=== PATIENT | male | born 1980 | race Caucasian/White ===

== ENCOUNTER 2016-08-02 19:29 | Emergency (ER) | payer SELFPAY ==
[~2016-08-02] VITALS: Ht 172.7 cm; Wt 75.5 kg
[~2016-08-02 19:29] MED LIST: Z.0.NO CURRENT MEDS
[2016-08-02 19:37] VITALS: RESP 20; TEMP 98.3; O2SAT 100
[2016-08-02] MEDS ORDERED: ACETAMINOPHEN/HYDROcodone 325 MG/7.5 MG TAB PO ONE (20:00)
--- NOTE | 2016-08-02 20:11 | PD ---
HPI Chief Complaint: Injury Time Seen by Provider: 20:04 Travel History International Travel<30 days: No Contact w/Intl Traveler<30days: No Traveled to known affect area: No History of Present Illness HPI 35-year-old male with congenital solitary kidney presents to the ED for evaluation of 10/10 right-sided ankle pain. Onset 4 days ago after falling down half a flight of stairs. Patient states that the ankle turned under him but he is unable to discern whether an inversion or eversion occurred. He endorses pain on the lateral aspect of the midfoot, described as burning, searing, occasionally shooting up the leg. Worsened by attempted ambulation. He has been ambulatory since the accident, states that he has been bearing weight on the medial side of his leg and the heel. He treated at home with ibuprofen and ice with no improvement of symptoms. Denies previous injury to the area, chronic health problems, takes no daily medications. Endorses allergy to Keflex. PFSH Past Medical History Depression: Yes Medical other: Yes (Has 1 kidney) Psychiatric: Yes (DEPRESSION) Tetanus Vaccination: < 5 Years Influenza Vaccination: No Past Surgical History Surgical History: No Previous Surgery Social History Alcohol Use: Yes Tobacco Use: Yes (1 PPD) Substance Use: Yes (Denies today) Allergies-Medications (Allergen,Severity, Reaction): Coded Allergies: Keflex (Verified Allergy, Unknown, 08/02/16) Patient states he thinks he was told not to take this because he has one kidney. Reported Meds & Prescriptions Reported Meds & Active Scripts Active Ibuprofen 800 Mg Tab 800 Mg PO Q8H Review of Systems Except as stated in HPI: all other systems reviewed are Neg Physical Exam Narrative GENERAL: Well-nourished, well-developed white male in no acute distress. SKIN: Warm and dry. HEAD: Normocephalic. EYES: No scleral icterus. No injection or drainage. NECK: Supple, trachea midline. No JVD or lymphadenopathy. CARDIOVASCULAR: Regular rate and rhythm without murmurs, gallops, or rubs. RESPIRATORY: Breath sounds equal bilaterally. No accessory muscle use. GASTROINTESTINAL: Abdomen soft, non-tender, nondistended. MUSCULOSKELETAL: No cyanosis, or edema. FOCUSED RIGHT LOWER EXTREMITY EXAM: 2+ DP pulse. Mild erythema of the lateral aspect of the midfoot. Squeeze test negative. Bimalleolar tenderness. Tender to palpation of the base of the fifth. No navicular tenderness. Patient is able to wiggle the toes and weakly flex and extend the ankle. Sensation intact to light touch distally. Cap refill less than 2 seconds. BACK: No obvious deformity. No CVA tenderness. Data Data Last Documented VS Vital Signs Date Time Temp Pulse Resp B/P Pulse Ox O2 Delivery O2 Flow Rate FiO2 08/02/16 19:37 98.3 20 100 Orders Acetamin-Hydrocod 325-7.5 Mg ([place] 7.5 (08/02/16 20:00) Ankle, Complete ([id number]) (08/02/16 19:57) Foot, Complete ([id number]) (08/02/16 19:57) Ice/Cold Pack (08/02/16 19:57) ^ Rosalio Bandage (08/02/16 21:03) Crutches (08/02/16 21:03) Mandatory Outpatient Referral (08/02/16 21:08) MDM Medical Decision Making Medical Screen Exam Complete: Yes Emergency Medical Condition: Yes Differential Diagnosis Avulsion fracture base of the fifth versus malleolar fracture versus ankle sprain versus less likely Lisfranc injury versus other Narrative Course 35-year-old male with congenital solitary kidney presents to the ED for evaluation of 1010 right-sided ankle pain. Onset 4 days ago after falling down half a flight of stairs. He has been ambulatory since the accident. He endorses pain on the lateral aspect of the midfoot, described as burning, searing, occasionally shooting up the leg, worsened by attempted ambulation. States he's been bearing weight on the medial side of his foot and heel. Vitals reviewed. Focused right lower extremity exam reveals 2+ DP pulse. Mild erythema of the lateral aspect of the midfoot. Squeeze test negative. Bimalleolar tenderness. Tender to palpation of the base of the fifth. No navicular tenderness. Patient is able to wiggle the toes and weakly flex and extend the ankle. Sensation intact to light touch distally. Cap refill less than 2 seconds. Ice pack was applied. Patient was administered 7.5 mg Lortab by mouth. X-ray of the foot and ankle reveal intact right foot and no fracture or subluxation of the ankle per radiology read. I'm concerned for peroneus brevis tendinitis or possible rupture. Patient was placed in an Rosalio wrap, provided crutches. A mandatory outpatient with podiatry was placed. Discussed the results of the x-rays with the patient as well as the plan for discharge. She was provided a prescription for 800 mg ibuprofen 3 times a day. He is instructed to rest, ice, elevate the extremity, take medications as prescribed, follow up with the plug and mold finisher as discussed. Patient was provided a note for work. He indicated understanding of instructions and is amenable to plan of care. He is stable and discharged home. Diagnosis Primary Impression: Tendinitis of right peroneus brevis tendon Referrals: [facility] Patient Instructions: Foot Sprain (ED), General Instructions Additional Instructions: Rest, ice, elevate the extremity. Apply ice no longer than 10-15 minutes per hour a few times a day. 800 mg ibuprofen up to 3 times a day as needed to reduce inflammation, pain and swelling. Gentle weightbearing as tolerated. Return to normal, gentle activity as tolerated. No running, jumping activities until cleared by the plug and mold finisher. Follow up with the plug and mold finisher this week. Return to the ED for any urgent or emergent medical condition. Med/Other Pt SpecificInfo: Prescription(s) given Scripts Ibuprofen 800 Mg [id number] Mg PO Q8H #15 TAB Ref 0 Prov:Licha Simental MD 08/02/16 Disposition: 01 DISCHARGE HOME Condition: Stable Shira Cormier Aug 02, 2016 20:11
--- NOTE | 2016-08-02 20:43 | RADHPO ---
EXAM DATE/TIME: 08/02/2016 20:17 [facility] COMPARISON: No previous studies available for comparison. INDICATIONS : Right foot pain after falling down stairs 4 days ago. MEDICAL HISTORY : None. SURGICAL HISTORY : None. ENCOUNTER: Initial ACUITY: 4 - 6 days PAIN SCORE: 10/10 LOCATION: Right lateral foot. FINDINGS: Three view examination of the right foot demonstrates no soft tissue swelling, dislocation, or fractu re. The tarsal bones appear intact. The interphalangeal and metatarsophalangeal joints are intact. The calcaneus is intact. Bony mineralization is normal. CONCLUSION: Intact right foot. Jeff Joseph MD on August 02, 2016 at 20:42 Board Certified Radiologist. This report was verified electronically.
--- NOTE | 2016-08-02 20:44 | RADHPO ---
EXAM DATE/TIME: 08/02/2016 20:19 [facility] COMPARISON: No previous studies available for comparison. INDICATIONS : Right ankle pain after falling down stairs 4 days ago. MEDICAL HISTORY : None. SURGICAL HISTORY : None. ENCOUNTER: Initial ACUITY: 4 - 6 days PAIN SCORE: 10/10 LOCATION: Right lateral ankle. FINDINGS: Three view exam was performed of the right ankle. The bony structures are in normal alignment. No e vidence of fracture, dislocation, or soft tissue swelling. The ankle mortise is intact. No radiopaq ue foreign bodies are seen. Bony mineralization is normal. CONCLUSION: Normal. No fracture or subluxation of the right ankle. Jeff Joseph MD on August 02, 2016 at 20:42 Board Certified Radiologist. This report was verified electronically.
[2016-08-02] MEDS ORDERED: IBUP800T23 PO (21:09)
== END 2016-08-02 21:37 | disposition home or self-care (01) ==
LOC: PHEFT 19:29
DX: M76.71 Peroneal tendinitis, right leg (principal); Q60.0 Renal agenesis, unilateral; F17.200 Nicotine dependence, unspecified, uncomplicated; Z86.59 Personal history of other mental and behavioral disorders; W10.9XXA Fall (on) (from) unspecified stairs and steps, initial encounter
CPT/HCPCS: 73610; 73630; 99283; E0113